=== PATIENT | female | born 1985 | race African-American/Black ===

== ENCOUNTER 2021-12-17 12:56 | Emergency (ER) | payer SELFPAY | END 2021-12-17 13:53 | disposition home or self-care (01) | LOC: CSHERS 12:56 | DX: J01.90 Acute sinusitis, unspecified (principal); B96.89 Other specified bacterial agents as the cause of diseases classified elsewhere; H60.92 Unspecified otitis externa, left ear | CPT/HCPCS: 99282 ==

== ENCOUNTER 2023-07-09 14:30 | Emergency (ER) | payer SELFPAY ==
[2023-07-09 16:14] LABS: Bilirubin Neg (Negative); Blood, Urine Negative (Negative); Glucose, Urine (Dipstick) Normal (Negative); Ketone, Urine 5 mg/dL (Negative); Leukocyte Negative (Negative); Nitrite Negative (Negative); Protein, Urine (Dipstick) 15 mg/dl (Neg-Trace); Specific Gravity, Urine 1.025 (1.005-1.030); Urobilinogen Normal mg/dL (Less than 2)
[2023-07-09 16:16] LABS: Pregnancy Test - Urine (BHCG) Negative (Negative); Pregu Control Background? CLEAR/WHITE (CLR/WHITE); Pregu Control Bar Appear? YES (CONTROL BAR); Specific Gravity 1.025 (1.002-1.036)
[2023-07-09 16:19] LABS: Clarity Slightly Cloudy (Clear)
[2023-07-09] MEDS ORDERED: Acetaminophen 500 MG TAB ONE (16:22)
[2023-07-09 16:24] LABS: RBC/HPF None Seen HPF (0-3)
[2023-07-09 16:25] LABS: Bacteria/HPF Rare-Few HPF (None Seen); CAUTI Indications for Culture Pelvic or flank pain; Mucous/LPF Rare LPF (<2+); Squamous Epithelial 0-3 HPF (0-3); WBC/HPF 0-3 HPF (0-3)
[2023-07-09 16:28] LABS: Urine Culture Reflex No No
== END 2023-07-09 17:58 | disposition home or self-care (01) ==
LOC: CSHERS 14:30
DX: R10.31 Right lower quadrant pain (principal); R10.2 Pelvic and perineal pain
CPT/HCPCS: 76856; 81001; 81025

== ENCOUNTER 2025-06-01 11:46 | Emergency (ER) | payer SELFPAY ==
[2025-06-01] MEDS ORDERED: Ibuprofen 200 MG TAB ONE (12:15)
[2025-06-01] MEDS ORDERED: Dexamethasone 4 MG TAB ONE (13:09)
== END 2025-06-01 13:12 | disposition home or self-care (01) ==
LOC: CSHERS 11:46
DX: J06.9 Acute upper respiratory infection, unspecified (principal)
CPT/HCPCS: 87081; 87428; 87430; 99283; J8540